=== PATIENT | female | born 1980 | race Caucasian/White ===

== ENCOUNTER 2018-08-01 06:02 | Inpatient (IN) ==
[2018-08-01] MEDS ORDERED: Bupivacaine/Epinephrine Inj 0.25% 50 ML Vial ONE (06:32)
[2018-08-01] MEDS ORDERED: Estrogens Congugated Vag Cream w/app 30 GM Tube VAGINAL ONE (06:32)
[2018-08-01] MEDS ORDERED: Sugammadex Inj 200 MG/2 ML Vial IV.PUSH ONE (06:51)
[2018-08-01] MEDS ORDERED: Metoprolol Tartrate 25 MG Tablet PO ONE (07:00)
[2018-08-01] MEDS ORDERED: ceFAZolin 2 GM Premix Inj 2 GM/50 ML PIGGYBACK IV.SIG ONE (07:00)
[2018-08-01] MEDS ORDERED: Chlorhexidine Gluconate 2% 1 Pack (2 Cloths) TOPICAL ONE (07:00)
[2018-08-01] MEDS ORDERED: Sodium Chlor 0.9% Inj 500 ML IV.CONT ONE (07:00)
[2018-08-01] MEDS ORDERED: Scopalamine 1.5 MG Patch T-DERMAL ONE (07:18)
[2018-08-01] MEDS ORDERED: Glycopyrrolate Inj 1 MG/5 ML Syringe IV.PUSH ONE (07:46)
[2018-08-01] MEDS ORDERED: Lidocaine PF 1% Inj 5 ML Syringe OTHER ONE (07:46)
[2018-08-01] MEDS ORDERED: Succinylcholine Inj 100 MG/5 ML Syringe IV.PUSH ONE (07:46)
[2018-08-01] MEDS ORDERED: Ketorolac Inj 30 MG/ML (IVP) Vial IV.PUSH ONE (07:46)
[2018-08-01] MEDS ORDERED: Morphine Inj 30 MG/30 ML PCA.VIAL PCA PRN (11:03)
[2018-08-01] MEDS ORDERED: Docusate Sodium 100 MG Capsule PO PRN (11:03)
[2018-08-01] MEDS ORDERED: LORazepam 0.5 MG Tablet PO PRN (11:03)
[2018-08-01] MEDS ORDERED: Naloxone Inj 0.4 MG/ML Vial IV.PUSH PRN (11:03)
--- NOTE | 2018-08-01 11:15 | P.BOP ---
- Preoperative Diagnosis (1) Menorrhagia (2) Dysmenorrhea (3) Dyspareunia - Postoperative Diagnosis (1) S/P abdominal hysterectomy and left salpingo-oophorectomy (2) Endometriosis Date of procedure: 08/01/18 Procedure: exam under anesthesia, diagnostic laparoscopy, exploratory laparotomy, total abdominal hysterectomy, left salpingo-oophorectomy, right salpingectomy, lysis of adhesions Anesthesia: GETA Surgeon: Trudi Stoner MD Cloth Mercerizing Supervisor: Karly Leo Estimated blood loss (mL): 700 IV fluids (mL): 2,500 Urine output (mL): 175 Pathology: other (uterus, cervix, left fallopian tube, left ovary, right fallopian tube) Condition: stable Disposition: PACU
[2018-08-01] MEDS ORDERED: *Ondansetron Inj 4 MG/2 ML Vial PERIprocedural Use ONLY ONE (11:22)
[2018-08-01] MEDS ORDERED: fentaNYL Citrate Inj 100 MCG/2 ML Ampul ONE (11:37)
[2018-08-01] MEDS ORDERED: Morphine Inj 4 MG/ML Vial IV.SIG ONE (11:45)
--- NOTE | 2018-08-01 13:02 | MP ---
cc: Trudi Stoner MD DATE OF OPERATION: 08/01/2018 DATE OF PROCEDURE: 08/01/2018 PREOPERATIVE DIAGNOSES: 1. Premenopausal menorrhagia. 2. Secondary dysmenorrhea. 3. Dyspareunia in female. POSTOPERATIVE DIAGNOSES: 1. Premenopausal menorrhagia. 2. Secondary dysmenorrhea. 3. Dyspareunia in female. 4. Severe pelvic adhesive disease. 5. Suspected endometriosis. 6. Postoperative day number 0. INDICATIONS: Nikita Harper is a 37-year-old 2, para 2-0-0-2, who has a history since the of her last son via , of increasingly more painful heavy menstrual cycles, as well as pelvic pain and dyspareunia throughout the month. She has tried medical management and failed and she desired definitive treatment with hysterectomy; as such she was evaluated and scheduled. PROCEDURE PERFORMED: 1. Exam under anesthesia. 2. Diagnostic laparoscopy. 3. Exploratory laparotomy. 4. Total abdominal hysterectomy. 5. Left salpingo-oophorectomy. 6. Right salpingectomy. 7. Lysis of adhesions. SURGEON: Trudi Stoner MD DRY TALC RACKER SURGEON: Karly Leo MD ANESTHESIA: General. ESTIMATED BLOOD LOSS: 750 mL IV FLUID REPLACEMENT: 2500 mL URINE OUTPUT: 175 mL of clear urine draining in the Shah bag at the end of the procedure. COMPLICATIONS: Include extensive scar tissue, suspected endometriosis, immobility of the uterus in the posterior cul-de-sac and incarceration of the uterus and left ovary necessitating the transition from laparoscopic to an open procedure. Due to this degree of difficulty, extra time needed and extra skill needed, reason for Dr. Leo second surgeon being necessary to complete the case safely. SPECIMENS: Uterus, cervix, left fallopian tube, left ovary, right fallopian tube. PROPHYLAXIS: Ancef 2 grams IV was given preoperatively. SCDs were on and functioning throughout the entire case. INTRAOPERATIVE FINDINGS: Include a severely retroverted and stuck approximately 9-week size incarcerated uterus with severe scarring of the bladder up through the mid and upper portion of the anterior surface of the uterus. The left adnexa was scarred and incarcerated within the posterior cul-de-sac as well; suspect adhesions of endometriosis and possible endometrioma on the left ovary as well as a suspected hydrosalpinx of the left fallopian tube. Normal appearing right fallopian tube and right ovary. PROCEDURE IN DETAIL: After reviewing the informed consent, the patient was taken to the operating suite, where a timeout was performed to identify the patient, planned procedure, any known allergies to drugs or drug products. The patient was placed in dorsal supine position and general anesthesia was administered without difficulty and found to be adequate. The abdomen and perineum were prepped and draped in normal sterile fashion. Attention was turned vaginally where a sterile speculum was placed. Cervix was visualized, grasped on the anterior lip with a single-tooth tenaculum. The uterus was sounded to 7 cm. Progressive of cervical dilators were used to accommodate the HUMI uterine manipulator; HUMI manipulator was introduced. Speculum and tenaculum were removed. Shah catheter was placed using sterile technique. Attention was then turned abdominally where approximately 3 mL of 0.25% bupivacaine with epinephrine was injected at the base of the umbilicus and incision was made with a scalpel to accommodate a 5 mm trocar. Trocar was introduced under direct visual entry technique and proper placement was confirmed; gas was turned on, abdomen was insufflated. Trendelenburg positioning was performed. There were some adhesions in the pelvis and it was difficult to properly view the pelvic organs. Therefore, a right lower quadrant port site was made after additional injection of local anesthetic and incision was made with the scalpel. Under direct visual guidance, a 5 mm port was introduced and using blunt grasper, attempt was made to better visualize the pelvic organs. There was severe scar tissue. The uterus was not mobile. It was felt to be incarcerated and scarred with the left adnexa to the posterior cul-de-sac and possibly to the colon. The bladder was also markedly adherent, much higher up on the anterior wall of the uterus than expected given the patient's history of only 2 cesareans. Decision was made at that time that in order to safely complete the procedure, conversion to laparotomy would be necessary. Gas was turned off. Abdomen was desufflated. The patient was brought back into level positioning. The 2 trocars were removed. Incision sites were cleaned and closed in a subcuticular fashion with 4-0 Monocryl, with excellent hemostasis. A Pfannenstiel type skin incision was then made with a scalpel, carried down to the underlying layer of fascia with the Bovie. The fascia was incised in the midline. Incision was extended laterally sharply with Matta scissors. Thad clamps were then used to elevate the fascia superiorly and inferiorly and rectus muscles were dissected off with both sharp and blunt dissection. There was a good degree of scar tissue in this layer from suspected prior cesareans. Eventually, the rectus muscles were freed. They were in the midline. Peritoneum was identified and entered bluntly with surgeon's index finger. The incision was extended superiorly and inferiorly with good visualization of intra-abdominal contents. O'Casey-O'Cadena retractor was then placed. Sterile moist lap sponges were used to pack the bowel out of the operative field and the uterus was visualized. With gentle blunt dissection using surgeon's hands, eventually, the uterus was able to be freed from its adhesions in the posterior cul-de-sac to allow increase in mobility. The round ligaments were doubly suture ligated bilaterally with 0-chromic. They were then divided with Bovie cautery and a bladder flap was attempted to be developed bilaterally. Again due to the severe scar tissue of the bladder to the mid portion of the anterior uterine wall, this was difficult and time consuming. More than 30 minutes was focused on the dissection of the bladder off of the mid to lower uterine segment. Once the bladder flap was developed, attention was then turned back to the adnexa. A clear space was found beneath the right utero-ovarian ligament. This was entered sharply, and the uteroovarian pedicle on the right was doubly suture ligated with curved Ganga clamps with excellent hemostasis noted. The right fallopian tube was then elevated with Clemente and using a Harmonic scalpel, was successfully excised and sent off the field. Right ovary remained on its vascular pedicle in the pelvis. Attention was then turned to the left adnexa, which was still somewhat moderately adherent to the left pelvic sidewall and posterior cul-de-sac. Again, using gentle blunt dissection, this was eventually able to be freed from its adhesions to the colon, pelvic side wall and posterior cul-de-sac. The left ovary was markedly enlarged and abnormal, suspected endometrioma within, as well as some firm areas and a suspected hydrosalpinx of the left fallopian tube. The left fallopian tube was elevated with Clemente clamp, successfully sealed and ligated from its vascular pedicle with the Harmonic scalpel and passed off the field for evaluation. This allowed better visualization of the left ovary and its vascular pedicle. A clear space was then made beneath the left utero-ovarian ligament and entered with Bovie cautery. The curved Ganga clamp was then used to successfully doubly clamped the vascular pedicle and suture ligate it with 0-Vicryl ties leaving the left ovary on the specimen side. The remaining connection to the uterus was then sealed and coagulated and transected using Harmonic scalpel, so the large and abnormal left ovary was passed off the field for evaluation. A series of curved Ganga clamps were then used to secure the vascular pedicles throughout the broad ligament down to the level of the uterine arteries bilaterally. The uterus was amputated in a supracervical fashion at first due to again severe scar tissue of the bladder and concern for damage to the bladder if the cervix were attempted to be removed at that point. Once the uterus itself was removed and the cervix was able to be isolated, additional gentle and tedious lysis of adhesions was performed for approximately another 20-minute timeframe and eventually the bladder was able to be completely removed off of the lower uterine segment and cervix. Using a series of clamps, the remaining blood supply to the cervix was successfully doubly clamped, transected, and suture ligated with cervix able to be amputated and removed from the pelvis. The vaginal cuff was then run with #1 Vicryl in running locked fashion with excellent hemostasis noted. Copious irrigation with suction was performed as there was a lot of oozing along that dissected a bladder and cuff, but all areas were felt to be intact with no injury noted. Mara was placed over all raw areas in the pelvis with excellent hemostasis noted. The right ovary remained with excellent blood supply. At this time, the retractor and sterile moist lap sponges were removed. Count was noted to be correct. The peritoneum was closed in a running layer with 2-0 chromic. The fascia was closed in a running layer with #1 Vicryl. Subcutaneous tissue was irrigated with warm sterile saline and dried with excellent hemostasis noted. A series of interrupted sutures using 2-0 chromic was then used to close subcutaneous space. Skin was closed in a subcuticular fashion with 4-0 Monocryl. Steri-Strips were placed as was a standard dressing. The procedure concluded at this point. The patient tolerated the procedure well with complications of adhesive disease as noted above. She was extubated, awoken from anesthesia without complication. ESTIMATED LENGTH OF STAY: One to two postoperative days. She will be admitted overnight. MD KEENA Montano/migel , 12:00 PM , 12:15 PM DEANGELO
[2018-08-01] MEDS: Ketorolac Inj 30 MG/ML (IVP) Vial IV.PUSH SCH ×2 (16:31→21:58)
--- NOTE | 2018-08-01 17:11 | P.PNOB ---
Assessment and Plan (1) S/P abdominal hysterectomy and left salpingo-oophorectomy Status: Acute (2) Menorrhagia Status: Chronic (3) Dysmenorrhea Status: Chronic (4) Dyspareunia Status: Chronic (5) Endometriosis Status: Chronic - Postoperative Procedures Operation Date: 08/01/18 08:00 Actual Procedures Side Surgeon p Explor Laparotomy, Tot Abd Hysterectomy Trudi Stoner MD Postoperative day: 0 Postoperative status: doing well (but not meeting criteria) Postoperative plan: routine post-op care, see orders, advance diet - Time Spent With Patient Total time spent is greater than 50% in coordination of care (as documented) at patient's floor/unit and/or counseling patient: 25 - 35 minutes Subjective Interval history: feeling nauseous and tired, resting in bed Subjective: patient reports nausea, other (pain moderately controlled, not using CLOTH CLASSER due to nausea; Toradol helping) Physical Exam Vital signs: Temp Pulse Resp BP Pulse Ox 97.4 F L 63 18 102/68 94 L 08/01/18 16:00 08/01/18 16:00 08/01/18 16:00 08/01/18 16:00 08/01/18 16:00 - Constitutional no acute distress - Routine Chest/Breast/Axilla Exam Chest wall: Absent: tenderness, mass - Routine Respiratory Exam Absent: accessory muscle use, decreased breath sounds - Routine Abdominal Exam Present: soft. Absent: distended - Detailed Neurological Exam: Coma Scale Eye Opening: Spontaneous Verbal Response: Oriented Motor Response: Obey commands George Coma Scale Total: 15 - Urinary Catheter Management Indwelling Urethral Catheter Cath placed during this visit: no Urethral indwelling: Yes Reason for Continuing: Decision to DC catheter (in AM)
[2018-08-01] MEDS: PCA - Total MG Morphine Delevered per Shift MISCELLANE SCH (18:35)
[2018-08-02] MEDS: Ketorolac Inj 30 MG/ML (IVP) Vial IV.PUSH SCH (03:57)
[2018-08-02 06:04] LABS: Baso % (Auto) 0.2 % (0.0-2.0); Eos % (Auto) 0.3 % (0.0-4.0); Hematocrit 31.8 % (35.0-46.0); Lymph # (Auto) 1.2 th/mm3 (1.0-4.8); Lymph % (Auto) 16.6 % (9.0-44.0); Mean Corpuscular HGB Conc 31.5 % (32.0-36.0); Mean Corpuscular Volume 66.5 fL (80.0-100.0); Mono % (Auto) 14.1 % (0.0-8.0); Neut % (Auto) 68.8 % (16.0-70.0); Platelet Count 199 th/mm3 (150-450); Red Blood Count 4.78 mil/mm3 (4.00-5.30); Red Cell Distribution Width 15.1 % (11.6-17.2); White Blood Count 7.3 th/mm3 (4.0-11.0)
[2018-08-02 06:46] LABS: Glomerular Filtration Rate Greater Than 89 mL/min (>89)
[2018-08-02] MEDS: PCA - Total MG Morphine Delevered per Shift MISCELLANE SCH ×2 (06:49→07:01)
[2018-08-02] MEDS ORDERED: Simethicone 80 MG Chew Tablet PO PRN (08:54)
--- NOTE | 2018-08-02 08:58 | P.PNOB ---
Assessment and Plan (1) S/P abdominal hysterectomy and left salpingo-oophorectomy Status: Acute (2) Menorrhagia Status: Chronic (3) Dysmenorrhea Status: Chronic (4) Dyspareunia Status: Chronic (5) Endometriosis Status: Chronic - Postoperative Procedures Operation Date: 08/01/18 07:46 Actual Procedures Side Surgeon p Explor Laparotomy, Tot Abd Hysterectomy Not Applicable Trudi Stoner MD Postoperative day: 1 Postoperative status: doing well Postoperative plan: ambulate, advance diet, voiding trials, other (change from IV to po pain medications to see if adequate control; not yet meeting d/c criteria) - Time Spent With Patient Total time spent is greater than 50% in coordination of care (as documented) at patient's floor/unit and/or counseling patient: 25 - 35 minutes Subjective Interval history: resting in bed, no longer having nausea; tolerated crackers & fluids overnight; anxious about ambulating and removing bandage Subjective: patient reports feeling better, patient is tolerating oral intake, other (not yet ambulating, escobar still in, no flatus yet) Physical Exam Vital signs: Temp Pulse Resp BP Pulse Ox 98.7 F 80 20 111/59 L 97 08/02/18 08:49 08/02/18 08:49 08/02/18 08:49 08/02/18 08:49 08/02/18 04:00 - Constitutional no acute distress - Routine Chest/Breast/Axilla Exam Chest wall: Absent: tenderness, mass - Routine Respiratory Exam Absent: accessory muscle use, respiratory distress - Routine Abdominal Exam Present: soft, normoactive bowel sounds - Detailed Neurological Exam: Coma Scale Eye Opening: Spontaneous Verbal Response: Oriented Motor Response: Obey commands George Coma Scale Total: 15 - Urinary Catheter Management Indwelling Urethral Catheter Cath placed during this visit: no Urethral indwelling: Yes Reason for Continuing: Decision to DC catheter Results - Labs CBC & Chem 7: 08/02/18 05:10 08/02/18 05:10 Labs: Laboratory Results - last 24 hr 08/02/18 08/02/18 05:10 05:10 WBC 7.3 RBC 4.78 Hgb 10.0 L Hct 31.8 L MCV 66.5 L MCH 21.0 L MCHC 31.5 L RDW 15.1 Plt Count 199 MPV 10.0 Neut % (Auto) 68.8 Lymph % (Auto) 16.6 [place] % (Auto) 14.1 H Eos % (Auto) 0.3 Baso % (Auto) 0.2 Neut # (Auto) 5.0 Lymph # (Auto) 1.2 [place] # (Auto) 1.0 H Eos # (Auto) 0.0 Baso # (Auto) 0.0 WBC Differential . Differential Comment Auto diff final Creatinine 0.48 L Estimated GFR Greater than 89
[2018-08-02] MEDS: Docusate Sodium 100 MG Capsule PO SCH ×2 (09:58→21:26)
[2018-08-02] MEDS: Amoxicillin/Clavulanate 500/125 MG Tablet PO SCH ×2 (09:58→21:26)
[2018-08-02 16:39] VITALS: O2SAT 93
[2018-08-02 20:08] VITALS: RESP 18
[2018-08-03 08:12] VITALS: BP 109/64; PULSE 78; TEMP 97.9
--- NOTE | 2018-08-03 08:47 | P.PNOB ---
Assessment and Plan (1) S/P abdominal hysterectomy and left salpingo-oophorectomy Status: Acute (2) Menorrhagia Status: Chronic (3) Dysmenorrhea Status: Chronic (4) Dyspareunia Status: Chronic (5) Endometriosis Status: Chronic - Postoperative Procedures Operation Date: 08/01/18 07:46 Actual Procedures Side Surgeon p Explor Laparotomy, Tot Abd Hysterectomy Not Applicable Trudi Stoner MD Postoperative day: 2 Postoperative status: doing well Postoperative plan: routine post-op care, discharge - Time Spent With Patient Total time spent is greater than 50% in coordination of care (as documented) at patient's floor/unit and/or counseling patient: 25 - 35 minutes Subjective Interval history: doing much better, ambulating, voiding, passing flatus, better pain control with combination oral medications, meeting all d/c criteria Subjective: patient reports feeling better, patient desires discharge Physical Exam Vital signs: Temp Pulse Resp BP Pulse Ox 97.9 F 78 18 109/64 93 L 08/03/18 08:00 08/03/18 08:00 08/03/18 08:00 08/03/18 08:00 08/03/18 08:00 - Constitutional no acute distress - Routine Chest/Breast/Axilla Exam Chest wall: Absent: tenderness, mass - Routine Respiratory Exam Absent: accessory muscle use, decreased breath sounds - Routine Abdominal Exam Present: soft, normoactive bowel sounds Comments: incisions c/d/i x 3; laparoscopy x 2, pfannenstiel x 1 - Detailed Neurological Exam: Coma Scale Eye Opening: Spontaneous Verbal Response: Oriented Motor Response: Obey commands [place] Coma Scale Total: 15 - Urinary Catheter Management Indwelling Urethral Catheter Cath placed during this visit: no Urethral indwelling: No Results - Labs CBC & Chem 7: 08/02/18 05:10 08/02/18 05:10
--- NOTE | 2018-08-03 08:50 | P.DS ---
Date of admission: 08/01/18 12:53 Primary care physician: No Primary Care Physician Attending physician on discharge: Trudi Stoner Anticipated date of discharge: 08/03/18 Brief History from admission: 37 yo with history of painful heavy menstrual cycles and chronic pelvic pain with dyspareunia admitted for scheduled surgery 08/01/18. Patient update on day of discharge: Patient had conversion to laparotomy from laparoscopic case due to severe pelvic adhesive disease, incarcerated uterus and left adnexa, inability to complete case safely laparoscopically. Due to this her postop healing was slightly slower than expected but by postop day #2 patient was meeting all criteria and doing well. DS: Diagnosis - Discharge Diagnosis (1) S/P abdominal hysterectomy and left salpingo-oophorectomy Status: Acute (2) Menorrhagia Status: Chronic (3) Dysmenorrhea Status: Chronic (4) Dyspareunia Status: Chronic (5) Endometriosis Status: Chronic DS: Medications - Discharge Medications Prescriptions: amoxicillin-pot clavulanate [Augmentin] 1 tab PO Q12HR #8 tab docusate sodium [DOK] 100 mg PO Q12H #20 cap ibuprofen 800 mg PO Q8H PRN #30 tab PRN Reason: Cramps oxycodone 5 mg PO Q4H PRN #18 tab PRN Reason: Acute Pain DS: Summary Hospital Course: As noted above. - Time Spent with Patient Total time spent providing and/or coordinating discharge services: Greater than 30 minutes - Quality: VTE Deep Vein Thrombosis/Pulmonary Embolism Present on Admission: No Exam Vital signs: Vital Signs 08/02/18 08:49 08/02/18 11:39 08/02/18 16:00 Temperature 98.7 F 97.5 F L Pulse Rate 80 90 Respiratory Rate 20 20 Blood Pressure 111/59 L 97/53 L Pulse Oximetry 93 L 08/02/18 17:01 08/02/18 20:08 08/02/18 23:49 Temperature 98.0 F 98.1 F 98.8 F Pulse Rate 66 86 87 Respiratory Rate 20 18 18 Blood Pressure 120/74 102/61 97/54 L Pulse Oximetry 08/03/18 04:07 08/03/18 08:00 Temperature 98.3 F 97.9 F Pulse Rate 88 78 Respiratory Rate 18 18 Blood Pressure 107/64 109/64 Pulse Oximetry 93 L Intake & Output 08/02/18 08/03/18 08/03/18 18:59 06:59 18:59 Output Total 925 / 925 Balance -925 / -925 Output: Urine 925 / 925 Other: # Voids 1 - Constitutional no acute distress - Routine HEENT Exam Head: Present: normocephalic, atraumatic Eye: Present: EOMI ENT: Present: mucous membranes moist - Routine Neck Exam Present: supple, full ROM - Routine Chest/Breast/Axilla Exam Chest wall: Absent: tenderness, mass - Routine Respiratory Exam Absent: accessory muscle use, decreased breath sounds - Routine Cardiovascular Exam Present: RRR. Absent: bradycardia - Routine Abdominal Exam Present: soft, normoactive bowel sounds - Routine Extremities Exam Absent: cyanosis, edema - Routine Skin Exam Present: intact Comments: incisions c/d/i x 3 - Routine Neurological Exam Present: alert, oriented X3 Results Procedures completed during hospitalization: exam under anesthesia, diagnostic laparoscopy, exploratory laparotomy, total abdominal hysterectomy, left salpingo-oophorectomy, right salpingectomy Pending studies at discharge: none Discharge Plan - Discharge Disposition Patient Disposition: Discharge Home - Discharge Condition Condition: Good - Discharge Order Discharge Orders: Discharge Order (Routine); Ordered 08/03/18 Ordered By: Trudi Stoner - Discharge Details Anticipated Discharge Date: 08/03/18 - Physicians Team Primary Care Provider: Primary Care Mackenzie Mitchell Attending Provider: Trudi Stoner - Rxs /Orders / Referrals /Forms Prescriptions: New amoxicillin-pot clavulanate [Augmentin] 500-125 mg Tablet 1 tab PO Q12HR Qty: 8 RF: 0 docusate sodium [DOK] 100 mg Capsule 100 mg PO Q12H Qty: 20 RF: 1 ibuprofen 800 mg Tablet 800 mg PO Q8H PRN (Reason: Cramps) Qty: 30 RF: 1 oxycodone 5 mg Tablet 5 mg PO Q4H PRN (Reason: Acute Pain) Qty: 18 RF: 0 No Action No Known Home Medications Referrals: Trudi Stoner MD [Physician] - See Instructions - Discharge Instructions Patient Printed Instructions: Exploratory Laparoscopy (DC), Exploratory Laparotomy (DC), Hysterectomy (DC) Additional Instructions: All prescriptions given to patient already per Dr. Stoner - Post Discharge Care Plan Care Plan Goals: We want you to have a wonderful recovery! Please Report the Following Symptoms to Your Doctor: -Temperature above 100.5 degrees -Redness of incision or excessive or foul smelling drainage -Unusual pain or calf pain -Increased vaginal bleeding -Painful or difficulty urinating Goals to Promote Your Health * To prevent worsening of your condition and complications * To maintain your health at the optimal level Directions to Meet Your Goals Take your medications as prescribed Follow your dietary instruction Follow activity as directed Ensure plenty of rest for recovery Drink fluids for hydration Keep your appointments as scheduled Take your immunizations and boosters as scheduled If your symptoms worsen call your ASSISTANT ATHLETIC TRAINER Physician, or go to an Urgent Care Center or Emergency Room Smoking is Dangerous to your health. Avoid second hand smoke Call the 24-hour crisis hotline for domestic abuse at
[2018-08-03] MEDS: Docusate Sodium 100 MG Capsule PO SCH (08:51)
[2018-08-03] MEDS: Amoxicillin/Clavulanate 500/125 MG Tablet PO SCH (08:51)
== END 2018-08-03 10:15 | disposition home or self-care (01) ==
LOC: HSDC 06:02 → HSDI 06:02 → H1EA 12:35
PROVIDERS: ADMIT Obstetrics & Gynecology; ATTEND Obstetrics & Gynecology